=== PATIENT | male | born 1980 | race Caucasian/White ===

== ENCOUNTER 2023-09-14 11:37 | Emergency (ER) | payer OTHER, SELFPAY ==
[2023-09-14 11:42] VITALS: BP 148/101
--- NOTE | 2023-09-14 12:36 | ED.GENMED ---
History of Present Illness
General
Chief Complaint: Musculo-Skeletal Complaint
Source: patient
Time Seen by Provider: 09/14/23 12:20
History of Present Illness
History of Present Illness:
42yo left hand dominant male with no significant past medical history presenting for evaluation of left shoulder pain. The pain initially started about 5-6 days ago. The started out as mild but has been gradually worsening. He denies any injuries.
He has been having difficulty with ROM due to the pain. He was seen at urgent care yesterday and was diagnosed with a muscle strain and started on prednisone 20mg BID x 5 days. He has taken 2 doses thus far without relief. He noticed swelling in
the hand today as well as paresthesias in his left forearm and hand today so decided to come to the ED for evaluation.
Phy Exam
General Physical Exam
General Presentation: well appearing and no apparent distress
General age: appears stated age
General Skin: warm and dry
General Habitus: normal
Cardiovascular Exam
Cardiovascular Exam: regular rate/rhythm
Pulmonary Exam
Pulmonary Exam: no respiratory distress
Musculoskeletal Exam
Musculoskeletal Exam: other (L shoulder: Normal to inspection. +Generalized tenderness to joint. ROM decreased 2/2 pain. Mild swelling to L hand. Cap refill <2 seconds. 2+ radial pulse. Motor and sensation intact in median, ulnar, and radial nerve
distributions. )
Course
Orders/Labs/Results
Orders:
Orders
09/14/23 11:45
Shoulder, Left, Trauma CR [CR Shoulder, Trauma - Left] Urgent
Comment:
Reason For Exam: pain
09/14/23 12:37
Ketorolac [Toradol] 30 mg IM NOW STA
Vital Signs
Initial and Last Documented VS:
Initial Vital Signs
Temp Pulse Resp BP Pulse Ox
98.4 F 99 18 148/101 97
09/14/23 11:42 09/14/23 11:42 09/14/23 11:42 09/14/23 11:42 09/14/23 11:42
Last Documented Vital Signs
Temp Pulse Resp BP Pulse Ox
98.4 F 99 18 148/101 97
09/14/23 11:42 09/14/23 11:42 09/14/23 11:42 09/14/23 11:42 09/14/23 11:42
MDM/Problems Addressed
Differential Diagnosis Includes:
42yoM here with atraumatic L shoulder pain. Started on prednisone by urgent care. C/o L hand swelling and paresthesias. He is well appearing with stable vital signs. Pain is reproducible on exam and ROM of L shoulder is decreased. No deformity or
skin changes. There is mild swelling to dorsum of L hand. Radial pulse is normal and cap refill is brisk. No clinical evidence of ischemic limb or evidence of DVT. Suspect this is dependent edema due to decreased use of the arm.
X-rays of L shoulder obtained which are negative for fracture. Imaging shows calcific tendonitis which is the likely culprit of his pain. Supportive care discussed including rest, heat, and ibuprofen. Advised f/u with orthopedics if symptoms
persist. ED return precautions discussed. He was discharged in stable condition.
*Critical Care Note
Total Time (30-74mins, 75-104mins- exclusive of procedures): Not Applicable
ED Attending Note
-
Portions of this chart may have been created with voice recognition software.� Occasional wrong word or��sound alike� substitutions may have occurred due to the inherent limitations of voice recognition software.
Discharge Plan
Departure
Patient Disposition: Home (Routine Discharge)
Date of Disposition: 09/14/23
Time of Disposition: 12:38
Patient with high blood pressure during this ER visit?: Yes
Discharge Problem:
Calcific tendinitis of left shoulder
Instructions: Calcific Tendinopathy of the Shoulder (DC)
Referrals:
Hossein Garcia MD [Active] -
Stand Alone Forms: Return to Work
Activity Restrictions/Additional Instructions:
Apply heat to affected area and rest. Take ibuprofen 600mg every 6 hours as needed for pain. You may also take Tylenol.
Please follow-up with orthopedics if your symptoms persist. Return to the ER with any new or worsening symptoms.
Interventions
Interventions:
*Risk Screen - Suicide Last Done: 09/14/23 11:42
*General Assessment Last Done: 09/14/23 11:42
*Neglect/Abuse Screening Last Done: 09/14/23 11:42
*Nursing Disposition Last Done: 09/14/23 13:05
Discharge Date and Time
Discharge Date/Time: 09/14/23 13:05
Print Language: TONGAN
[2023-09-14] MEDS: TORADOL 30 MG IM (12:52)
== END 2023-09-14 13:05 | disposition home or self-care (01) ==
LOC: EMR 11:37
PROVIDERS: EMERGENCY PHYSICIAN Emergency Medicine; FAMILY PHYSICIAN Student in an Organized Health Care Education/Training Program
DX: M75.32 Calcific tendinitis of left shoulder (principal); M25.512 Pain in left shoulder; R20.2 Paresthesia of skin; R03.0 Elevated blood-pressure reading, without diagnosis of hypertension
CPT/HCPCS: 99284; 96372; 73030